=== PATIENT | female | born 1965 | race Two or more races ===

== ENCOUNTER 2016-04-23 08:53 | Emergency (ER) | payer OTHER ==
[2016-04-23 09:00] VITALS: BP 149/84; PULSE 98; TEMP 98.3; BMI 29.2
--- NOTE | 2016-04-23 09:45 | PDOC ---
History of Present Illness - General Chief Complaint: Vaginal Sxs Stated Complaint: CONGESTED, VAGINAL PAIN Time Seen by Provider: 04/23/16 09:14 History Source: Patient - History of Present Illness Timing/Duration: reports: constant Past History - Past Medical History Allergies/Adverse Reactions: Allergies Allergy/AdvReac Type Severity Reaction Status Date / Time No Known Allergies Allergy Verified 04/23/16 09:00 Home Medications: Ambulatory Orders Nitrofurantoin Monohyd/M-Cryst [Macrobid -] 100 mg PO BID #14 capsule 04/23/16 COPD: Yes - Psycho/Social/Smoking Cessation Hx Anxiety: No Suicidal Ideation: No Smoking History: Current every day smoker Number of Cigarettes Smoked Daily: 7 Information on smoking cessation initiated: Yes 'Breaking Loose' booklet given: 04/23/16 Hx Alcohol Use: Yes (SOCIAL) Drug/Substance Use Hx: No Substance Use Type: None Review of Systems - Review of Systems Constitutional: No: Chills, Fever HEENTM: Yes: Nose Congestion. No: Ear Pain, Throat Pain Respiratory: No: Cough ABD/GI: No: Abdominal cramping : Yes: Dysuria, Pain *Physical Exam - Vital Signs Last Vital Signs Temp Pulse Resp BP Pulse Ox 98.3 F 98 H 20 149/84 98 04/23/16 08:57 04/23/16 08:57 04/23/16 08:57 04/23/16 08:57 04/23/16 08:57 - Physical Exam General Appearance: Yes: Appropriately Dressed, Other. No: Apparent Distress HEENT: positive: Normal ENT Inspection. negative: Scleral Icterus (R), Scleral Icterus (L) Neck: positive: Supple. negative: Lymphadenopathy (R), Lymphadenopathy (L) Respiratory/Chest: negative: Respiratory Distress Female Pelvic Exam: positive: normal external exam, normal adnexa, other (no signs of atrophic vaginitis). negative: CMT, discharge, lesions Gastrointestinal/Abdominal: positive: Soft. negative: Tender Integumentary: positive: Dry, Warm Neurologic: positive: Fully Oriented, Alert, Normal Mood/Affect Medical Decision Making - Medical Decision Making 04/23/16 09:42 51 yo Female, h/o COPD, HL, post menopausal, here w/ pain to external genitalia w/ ?dysuria x 3 days. Denies urinary freq, henaturia, flank pain, n/v/f/c or genital discharge or lesions. States she has only has sexual intercourse about once every 8 months. Patient also complaining of nasal congestion for a week. No facial pain, sore throat, ear pain, fever or chills See exam Genital pain/dysuria Abd/ exam unremarkable R/o uti -ua/cx URI M/l viral -dc w/ symptomatic tx 04/23/16 10:39 04/23/16 10:39 Ua + for LE and blood. Will tx for possible uti. Ucx pending *DC/Admit/Observation/Transfer Diagnosis at time of Disposition: Dysuria - Discharge Dispostion Disposition: HOME Condition at time of disposition: Good - Prescriptions Prescriptions: Nitrofurantoin Monohyd/M-Cryst [Macrobid -] 100 mg PO BID #14 capsule - Referrals Referrals: Spenser Renner [Primary Care Provider] - - Patient Instructions Printed Discharge Instructions: Urinary Tract Infection Additional Instructions: Take medication as directed and follow up with your [employer]
[2016-04-23 10:10] LABS: URINE APPEARANCE SLCLOUDY; URINE BILIRUBIN NEGATIVE (NEGATIVE); URINE COLOR YELLOW; URINE GLUCOSE (UA) NEGATIVE (NEGATIVE); URINE KETONE NEGATIVE (NEGATIVE); URINE NITRITE NEGATIVE (NEGATIVE); URINE PROTEIN NEGATIVE (NEGATIVE); URINE UROBILINOGEN NEGATIVE E.U./dl (0.2-1.0)
[2016-04-23 10:12] LABS: URINE BLOOD 3+ (NEGATIVE); URINE LEUK ESTERASE 1+ (NEGATIVE)
[2016-04-23 10:17] LABS: URINE BACTERIA FEW /hpf (NONE SEEN); URINE MUCUS RARE; URINE RBC 68 /hpf (0-3); URINE WBC 66 /hpf (3-5)
--- NOTE | 2016-04-25 16:12 | PDOC ---
Patient Follow-up (Call Back) - Post ED Follow - Up Condition at time of discharge: Good Disposition at time of original discharge: HOME Reason for Call Back: Abnwl. Microbiology (urine C & S + for proteus mirabilis not sensite to macrobid that pt. was discharged on, called pt. left message for her to call back will change to bactrim DS 1 tab bid for 7 days)
--- NOTE | 2016-04-26 17:12 | PDOC ---
Patient Follow-up (Call Back) - Post ED Follow - Up Condition at time of discharge: Good Disposition at time of original discharge: HOME Reason for Call Back: Abnwl. Microbiology (Patient's urine from 04/23/2016 revealed that bacteria is not sensitive to Macrobid is sensitive to Bactrim DS will send Rx for Bactrim DS one tab twice a day 7 days patient was instructed to pick it up at [facility] today. Patient also instructed to follow up with her primary care doctor for repeat urine testing when treatment has finished.)
== END 2016-04-23 10:44 | disposition home or self-care (01) ==
LOC: JERFT 08:53
DX: N39.0 Urinary tract infection, site not specified (principal); J06.9 Acute upper respiratory infection, unspecified; B97.89 Other viral agents as the cause of diseases classified elsewhere; J44.9 Chronic obstructive pulmonary disease, unspecified; F17.210 Nicotine dependence, cigarettes, uncomplicated
CPT/HCPCS: 81003; 81015; 87086; 87186; 99281-25